=== PATIENT | male | born 2000 | race African-American/Black ===

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

== ENCOUNTER 2025-08-22 09:35 | Emergency (ER) | payer OTHER ==
[~2025-08-22] VITALS: Ht 170.2 cm; Wt 56.8 kg
[2025-08-22 10:10] LABS: PLATELET COUNT (AUTO) 277 K/uL (150-450); RED BLOOD CELL COUNT(AUTO) 4.94 MIL/uL (4.50-5.90); RED CELL DISTRIBUTION WIDTH 13.0 % (11.5-14.5); WHITE BLOOD COUNT (AUTO) 7.4 K/uL (4.5-11.0)
[2025-08-22 10:20] LABS: CALCIUM, TOTAL 9.3 mg/dL (8.8-10.5); CREATININE 1.02 mg/dL (0.60-1.30); GLOMERULAR FILTR. RATE CALC > 60 mL/min (>60); GLUCOSE,RANDOM 123 mg/dL (70-110); SODIUM SERUM 141 mmol/L (136-145); UREA NITROGEN, BLOOD 17 mg/dL (7-18)
[2025-08-22 10:26] LABS: ASPARTATE AMINOTRANSFERASE 29.0 U/L (15-37); TOTAL PROTEIN, SERUM 8.4 g/dL (6.4-8.2)
[2025-08-22] MEDS: ACETAMINOPHEN 500 MG TABLET PO ONE (10:38)
[2025-08-22] MEDS: KETOROLAC TROMETHAMINE 30 MG/ML VIAL IVP ONE (10:38)
[2025-08-22] MEDS: OMEPRAZOLE 20 MG CAPSULE PO ONE (10:38)
[2025-08-22] MEDS: SODIUM CHLORIDE 0.9% 1,000 ML IV ONE (10:38)
[2025-08-22] MEDS: ONDANSETRON HCL 4 MG/2 ML VIAL IVP ONE (10:38)
[2025-08-22 11:07] VITALS: BP 128/74; PULSE 71; RESP 18; TEMP 97.3; O2SAT 99
[2025-08-22] MEDS ORDERED: ONDA-104 PO (11:09)
[2025-08-22] MEDS ORDERED: MAG30ORA11 PO (11:09)
[2025-08-22] MEDS ORDERED: OMEP-148 PO (11:09)
== END 2025-08-22 11:30 | disposition home or self-care (01) ==
LOC: EMS 09:35
DX: K29.70 Gastritis, unspecified, without bleeding (principal); F17.210 Nicotine dependence, cigarettes, uncomplicated; F10.90 Alcohol use, unspecified, uncomplicated; Y90.9 Presence of alcohol in blood, level not specified
CPT/HCPCS: 99284; 96374; 96375; 80048; 80076; 83690; 85025; 36415; J1885; G0480; J2405; J7030